=== PATIENT | male | born 1990 | race Caucasian/White ===

== ENCOUNTER 2021-05-12 14:28 | Emergency (ER) | payer OTHER ==
[~2021-05-12] VITALS: Ht 188 cm; Wt 104.3 kg
[2021-05-12] MEDS ORDERED: CLARITIN10 M1 PO (15:17)
[2021-05-12] MEDS ORDERED: BUTALB-ACETAMI1 EACH PO (19:59)
== END 2021-05-12 21:09 | disposition home or self-care (01) ==
LOC: ER 14:28
DX: G43.909 Migraine, unspecified, not intractable, without status migrainosus (principal)